=== PATIENT | male | born 1995 | race Two or more races ===

== ENCOUNTER 2018-08-07 08:08 | Emergency (ER) | payer SELFPAY ==
--- NOTE | 2018-08-07 08:40 | EDPHY ---
H & P Stated Complaint: ETOH Time Seen by Provider: 08/07/18 08:32 HPI/ROS: CHIEF COMPLAINT: Alcohol intoxication HISTORY OF PRESENT ILLNESS: 23-year-old male with alcoholism presents with alcohol intoxication. He has been drinking heavily recently because of depression. Picked up by EMS this morning because of unresponsiveness. Denies trauma. Recent insect bite rt forearm, gradually increasing pain and swelling. No fever and no history of IVDA. REVIEW OF SYSTEMS: complete 10 point ROS reviewed and is negative except for the noted elements in the HPI Source: Patient - Personal History Current Tetanus/Diphtheria Vaccine: Yes Current Tetanus Diphtheria and Acellular Pertussis (TDAP): Yes - Medical/Surgical History Hx Asthma: No Hx Chronic Respiratory Disease: No Hx Diabetes: No Hx Cardiac Disease: Yes Hx Renal Disease: No Hx Cirrhosis: No Hx Alcoholism: No Hx HIV/AIDS: No Hx Splenectomy or Spleen Trauma: No Other PMH: htn, anxiety - Social History Smoking Status: Never smoked Alcohol Use: Heavy Drug Use: None - Physical Exam Exam: General Appearance: Lethargic, slurred speech, appears intoxicated Eyes: Pupils equal and round, no conjunctival pallor ENT, Mouth: Mucous membranes moist Neck: Normal inspection Respiratory: Lungs are clear to auscultation Cardiovascular: Regular rate and rhythm Gastrointestinal: Abdomen is soft and nontender Neurological: Lethargic, nonfocal exam Skin: Warm and dry Extremities: Right upper extremity-erythema and tenderness, approximately 6 cm in diameter on the volar aspect of the forearm, no fluctuance or lymphangitis Psychiatric: Flat affect Constitutional: Initial Vital Signs Heart Rate 105 H 08/07/18 08:11 Respiratory Rate 16 08/07/18 08:11 Blood Pressure 134/98 H 08/07/18 08:11 O2 Sat (%) 95 08/07/18 08:11 O2 Delivery Mode Room Air Allergies/Adverse Reactions: No Known Allergies Allergy (Unverified 08/07/18 08:19) Home Medications: Medication Instructions Recorded Cephalexin [Keflex (*)] 500 mg PO QID #20 cap 08/07/18 Cephalexin [Keflex (*)] 500 mg PO TID #20 cap 08/07/18 Gabapentin 08/07/18 Medical Decision Making ED Course/Re-evaluation: Patient presents with alcohol intoxication. Will observe until he is able to ambulate with a steady gait. He is on an [facility] hold and is in agreement to go to the [facility]. He also has right forearm cellulitis. No evidence of abscess. Keflex given. 10:30 a.m.-able to walk with a steady gait. Will d/c to [facility]. - Data Points Medications Given: Discontinued Medications Cephalexin HCl (Keflex) 500 mg PO EDNOW ONE PRN Reason: Protocol Stop: 08/07/18 08:42 Last Admin: 08/07/18 08:45 Dose: 500 mg Departure - Departure Disposition: Home, Routine, Self-Care Clinical Impression: Alcoholic intoxication Qualifiers: Complication of substance-induced condition: uncomplicated Qualified Code(s): F10.920 - Alcohol use, unspecified with intoxication, uncomplicated Cellulitis Qualifiers: Site of cellulitis: extremity Site of cellulitis of extremity: upper extremity Laterality: right Qualified Code(s): L03.113 - Cellulitis of right upper limb Condition: Good Instructions: Cellulitis (ED), Alcohol Intoxication (ED) Referrals: [facility],. [Clinic] - As per Instructions [facility] 24 Hours [Outside] - As per Instructions Prescriptions: Cephalexin [Keflex (*)] 500 mg PO TID #20 cap
[2018-08-07] MEDS ORDERED: CEPHALEXIN 500 MG CAP PO ONE (08:41)
[2018-08-07 11:08] VITALS: BP 129/81
== END 2018-08-07 11:07 | disposition home or self-care (01) ==
DX: F10.920 Alcohol use, unspecified with intoxication, uncomplicated (principal); L03.113 Cellulitis of right upper limb

== ENCOUNTER 2018-08-07 18:31 | Emergency (ER) | payer SELFPAY ==
[2018-08-07] MEDS ORDERED: CEPHALEXIN 500 MG CAP PO ONE (18:46)
--- NOTE | 2018-08-07 18:50 | EDPHY ---
General Time Seen by Provider: 08/07/18 18:31 Narrative: CLINICAL IMPRESSION: Alcohol intoxication, left forearm cellulitis ASSESSMENT/PLAN: 23-year-old male presents to the emergency department for the 2nd time in 12 hr from the [facility] with complaints of right forearm swelling pain and subjective paresthesias. Patient is intoxicated, was discharged from this emergency department at 11:00 a.m. This morning after he was heavily intoxicated and placed on an [facility] hold. He was started on Keflex in the ED, discharged with a prescription for Keflex and Librium prepack. According to the [facility] they have no prescriptions on file for either of these medications. Patient is still intoxicated. He has intact distal neurovascular exam, erythema and swelling to the forearm with no clinical signs of compartment syndrome, necrotizing fasciitis, osteomyelitis, deep space abscess. He has a secondary small cellulitic area to the right superior lateral chest wall. He was given a 2nd dose of Keflex tonight and discharge back to the [facility] with a new prescription for Keflex and a new Librium prepack. Instructed to follow up with primary care in 24-48 hours. Warning signs return to ED sooner outlined and discharge. DIFFERENTIAL DX: Differential diagnosis for this patient includes but not limited to alcohol intoxication, alcohol abuse, alcohol withdrawal, other substance abuse or withdrawal, toxidrome or medication overdose, left arm cellulitis. ED PROCEDURES: See lab and/or imaging results below ED COURSE: Seen by myself at 6:45 p.m.. Flat affect, labile, laying on the bed, responding to all questions, does not remember that he was seen in this emergency department earlier today, intoxicated. Moving his right arm without obvious difficulty. Test Automation Architect strength intact. Swelling and erythema noted to forearm consistent with cellulitis. Will give 2nd dose of Keflex. Plan to call the [facility] to locate his prescription for Keflex and ensure he has a Librium prepack. Plan to discharge back to the [facility]. CHIEF COMPLAINT: Right arm pain and numbness HPI: 23-year-old male presents to the emergency department for the 2nd time in 12 hr with complaints of right arm pain and numbness. Patient was seen in this emergency department at 8:00 a.m. This morning after he was heavily intoxicated and found to have a cellulitis to the right arm. He was given Keflex as well as a prescription for Keflex. He was allowed to sober and was placed on [facility] by police. Shortly after 11, patient sobered enough to have a stable gait and was discharged to the [facility]. He reports he was not given any medications there. He told them that he was having right arm pain and numbness and was transported back to the emergency department tonight. Patient tells me that he was seen in this emergency department yesterday. I informed him that he just left us 7 hours ago. He states "you guys did not do anything for me". I reassured him that he was given a dose of an antibiotic as well as a prescription. He has no idea where the prescription it is. He also does not remember if he was given Librium prepack. He states the [facility] did not give him anything. He has been heavily drinking over the last 2 weeks. He states he is depressed but denies suicidal and homicidal ideations. He states he was bitten by something on his arm. He has no reports of IV drug abuse or other illicit drugs. PAST MEDICAL HISTORY: alcohol abuse See triage summary and nurse notes for addition applicable history Pertinent Past Surgical History: None reported Family History: None reported Social History: Homeless, abuses alcohol REVIEW OF SYSTEMS: A full 10 point review of systems was negative except for those mentioned in HPI. PHYSICAL EXAM: General Appearance: Alert, oriented, man, flat affect, quiet, lying comfortably on the bed, answering all questions, breath alcohol of 0.26, cooperative, NAD, well hydrated, non-toxic appearing, tachycardic, no hypoxia. Neck: Supple, nontender, no lymphadenopathy, no midline pain, FROM, no meningismus. Respiratory: There are no retractions, lungs are clear to auscultation. 4 cm x 4 cm flat erythematous patch of redness on the right upper lateral chest wall. There is a scratch to the skin with in this area and may be indicative of a mild cellulitis. No reproducible chest wall or rib pain. Patient reports no fall or injury. Cardiac: Tachycardic, regular rhythm, no murmurs or gallops. Gastrointestinal: Abdomen is soft, nontender, bowel sounds normal, no masses/ hernia, no rigidity, guarding or focal peritoneal findings. Skin: Right forearm with swelling noted. Superficial erythema and warmth on the volar aspect of the arm with what appears to be a small puncture wound centrally. No induration, fluctuance. Distal neurovascular exam intact. Test Automation Architect strength 4/5 on the right compared to 5/5 on the left. Full range of motion of the shoulder, elbow and wrist. No evidence of tenosynovitis. Able to give thumbs up, a OK sign and abduct fingers without difficulty. No track galloway seen MEDICAL DECISION MAKING: Patient was seen independently. Secondary supervising physician at time of evaluation was: Dr. Moses. Diagnosis: Right forearm cellulitis, alcohol intoxication. New, requires workup Summary: See Assessment and Plan for summary of ED visit Review / Summarize previous medical records: Reviewed ED notes from today Discussed patient with another provider: No Patient Progress: Stable for discharge back to the [facility]. - History Smoking Status: Never smoked - Objective Vital Signs: Initial Vital Signs Temperature (C) 36.7 C 08/07/18 18:33 Heart Rate 103 H 08/07/18 18:33 Respiratory Rate 16 08/07/18 18:33 Blood Pressure 141/89 H 08/07/18 18:33 O2 Sat (%) 96 08/07/18 18:33 O2 Delivery Mode Room Air Allergies/Adverse Reactions: No Known Allergies Allergy (Unverified 08/07/18 08:19) Home Medications: Medication Instructions Recorded Cephalexin [Keflex (*)] 500 mg PO QID #20 cap 08/07/18 Cephalexin [Keflex (*)] 500 mg PO TID #20 cap 08/07/18 Gabapentin 08/07/18 Medications Given: Discontinued Medications Cephalexin HCl (Keflex) 500 mg PO EDNOW ONE PRN Reason: Protocol Stop: 08/07/18 18:47 Last Admin: 08/07/18 18:57 Dose: 500 mg Chlordiazepoxide (Librium 25 Mg Prepack#6) 1 btl GABRIEL العلي ONE Stop: 08/07/18 19:00 Last Admin: 08/07/18 19:26 Dose: 1 btl Departure - Departure Disposition: Home, Routine, Self-Care Clinical Impression: Alcohol intoxication Qualifiers: Complication of substance-induced condition: uncomplicated Qualified Code(s): F10.920 - Alcohol use, unspecified with intoxication, uncomplicated Cellulitis Qualifiers: Site of cellulitis: extremity Site of cellulitis of extremity: upper extremity Condition: Fair Instructions: Chlordiazepoxide/Clidinium (By mouth), Cellulitis (ED), Abuse of Alcohol (ED) Additional Instructions: DISCHARGE INSTRUCTIONS FROM YOUR DOCTOR Thank you for visiting our emergency department today. You were treated by a physician assistant corporate controller today and your case was reviewed with our ED Attending physician. Please keep in mind that discharge from the emergency department does not mean that there is nothing wrong - it simply means that we have not identified an emergency condition that requires further evaluation or treatment in the hospital. You should always plan to follow up with primary care for re- evaluation of your condition in the next 2-3 days. If you have been referred to a specialist, please call as soon as possible (today or tomorrow) to schedule your follow up appointment at the appropriate time. A 2ND DOSE OF KEFLEX WAS GIVEN IN THE EMERGENCY DEPARTMENT TONIGHT. WE [facility]CT[facility] TO LOCATE YOUR KEFLEX PRESCRIPTION THAT WAS GIVEN EARLIER TODAY. IT IS IMPORTANT THAT YOU TAKE THE FULL COURSE OF THIS ANTIBIOTIC. THE [facility] HAS WALK-IN APPOINTMENTS FOR THE HOMELESS AT THE FOLLOWING DAYS AND LOCATIONS. NO APPOINTMENT IS NEEDED. PLEASE MAKE A FOLLOW-UP APPOINTMENT WITH THEM TO HAVE YOUR WOUND RECHECKED. FRIDAY 8-10AM AT [facility] AND 11AM-1PM AT THE [facility] FRIDAY 8-10AM AT [facility] FRIDAY 8-10AM AT [facility] FRIDAY 2-4PM AT [facility] FRIDAY 8-10AM AT [facility] RETURN TO THE EMERGENCY DEPARTMENT FOR INCREASED ARM SWELLING, PAIN, DEVELOPMENT OF FEVER OR CHILLS, VOMITING, OR ANY OTHER CONCERNS. People present with illnesses and injuries in different ways, and it is always possible that we have missed something. You may always return for re-evaluation if symptoms worsen or if they are not improving or if you develop new/different symptoms. Again, thank you for choosing our emergency department. We hope that you feel better. Referrals: Patient,NotPresent [Unknown] - As per Instructions [facility],. [Clinic] - 1-2 days without fail Prescriptions: Cephalexin [Keflex (*)] 500 mg PO QID #20 cap
[2018-08-07] MEDS ORDERED: CHLORDIAZEPOXIDE 25MG PREPK#6 BTL TAKEHOME ONE (18:59)
[2018-08-07 19:42] VITALS: BP 125/77
== END 2018-08-07 19:42 | disposition home or self-care (01) ==
LOC: EDUNIT#
DX: F10.920 Alcohol use, unspecified with intoxication, uncomplicated (principal); L03.114 Cellulitis of left upper limb

== ENCOUNTER 2018-08-23 12:14 | Emergency (ER) | payer MEDICAID ==
--- NOTE | 2018-08-23 12:33 | EDPHY ---
H & P - Medical/Surgical History Hx Asthma: No Hx Chronic Respiratory Disease: No Hx Diabetes: No Hx Cardiac Disease: Yes Hx Renal Disease: No Hx Cirrhosis: No Hx Alcoholism: No Hx HIV/AIDS: No Hx Splenectomy or Spleen Trauma: No Other PMH: htn, anxiety - Social History Smoking Status: Never smoked Time Seen by Provider: 08/23/18 12:17 HPI/ROS: CHIEF COMPLAINT: Suspected alcohol abuse HISTORY OF PRESENT ILLNESS: 23 year old homeless male arrives via ambulance for suspected alcohol abuse. Patient unable to ambulate without assistance. No reports of trauma or assault. No fall from height. No structures of height near patient. History is limited due to patient's altered mental status. REVIEW OF SYSTEMS: 10 systems reviewed and negative with the exception of the elements mentioned in the history of present illness PAST MEDICAL/SURGICAL HISTORY: no anticoagulant use, no relevant medical/ surgical history SOCIAL HISTORY: Positive for witnessed and self disclosed alcohol use PHYSICAL EXAM 1) GENERAL: poorly kept, dirty, foul-smelling, Answering questions appropriately.Smells of alcohol. 2) HEAD: Normocephalic, atraumatic 3) HEENT: Pupils equal, round, reactive to light bilaterally. Negative Horners. Nasopharynx, oropharynx, clear. No deformity or angulation of nose. No septal hematoma. No rhinorrhea. No oral trauma. Ears bilaterally with normal tympanic membranes. No hemotympanum. No fluid or blood in the external auditory canal. No raccoon eyes. No Carpenter sign. Teeth are normally aligned with no gross malocclusion, TMJ bilaterally nontender, facial bones nontender including the zygomatic arch, maxilla mandible. 4) NECK: No cervical collar is on. Posterior cervical spine is nontender, no stepoff, no effusion. Full range of motion which does not elicit any midline cervical spine pain, no posterior midline tenderness, no step-off. 5) LUNGS: Clear to auscultation bilaterally, no wheezes, no rhonchi, no retractions. No obvious signs of trauma. No chest wall pain. No flaring, no grunting. Moving symmetrically. No crepitus. 6) HEART: [Regular rate and rhythm, 7) ABDOMEN: No guarding, no rebound, no focal tenderness, no peritoneal signs, no signs of trauma, no ecchymosis 8) MUSCULOSKELETAL: Left upper extremity: No evidence of cellulitis. Soft compartments. No discoloration. Moving all extremities, no focal areas of tenderness, no obvious trauma. 9) BACK: No midline vertebral tenderness, no fluctuance, no step-off, no obvious trauma, no visual or palpable abnormality. 10) SKIN: No laceration. No abrasion DIFFERENTIAL DIAGNOSIS: In no particular orderincluding but not limited to hypoglycemia, infectious process, electrolyte abnormality, head injury and intoxicants. (Tori Flores) Constitutional: Initial Vital Signs Temperature (C) 36.6 C 08/23/18 12:36 Heart Rate 98 08/23/18 12:36 Respiratory Rate 16 08/23/18 12:36 Blood Pressure 132/70 H 08/23/18 12:36 O2 Sat (%) 93 08/23/18 12:36 O2 Delivery Mode Nasal Cannula O2 (L/minute) 2 Allergies/Adverse Reactions: No Known Allergies Allergy (Verified 08/23/18 12:43) Home Medications: Medication Instructions Recorded Cephalexin [Keflex (*)] 500 mg PO QID #20 cap 08/07/18 Cephalexin [Keflex (*)] 500 mg PO TID #20 cap 08/07/18 Gabapentin 08/07/18 Medical Decision Making ED Course/Re-evaluation: 12:30 p.m.: Patient has history of emergency department visit for alcohol abuse in the past. He is currently somnolent and unable provide me reliable history. Will obtain laboratory studies. Specifically, he was evaluated in the ER approximately 2 weeks ago for left upper extremity cellulitis 1:44 p.m.: Patient's alcohol level returned at this time is 444 5:00 p.m.: Care turned over to Dr. Luis Felipe Moses. The patient has been re- evaluated with serial exams by myself in the emergency department and he remains sleeping. (Tori Flores) Other Provider: PHYSICIAN DOCUMENTATION: The patient was evaluated and managed by the Physician Sparmaker and myself. I have reviewed the chart and agree with the findings and plan of care as documented. In addition, I examined the patient myself. History confirmed as limited by patient's altered mental status but per EMS no trauma. Physical findings as follows: Sleepy awakens to voice. Alcohol level elevated greater than 400, glucose 104. Plan for serial examinations. Signed out to Josué at 1500. I am the secondary supervising physician. (Chago Calderon) - Data Points Laboratory Results: 08/23/18 08/23/18 14:08 12:45 POC Glucose 104 mg/dL H mg/dL (70-100) Ethyl Alcohol 444 mg/dL H* mg/dL (0-10) Medications Given: Discontinued Medications Sodium Chloride (Ns) 1,000 mls @ 0 mls/hr IV ONCE ONE PRN Reason: Wide Open Stop: 08/23/18 13:08 Last Admin: 08/23/18 13:11 Dose: 1,000 mls Point of Care Test Results: Chemistry 08/23/18 14:08 POC Glucose 104 mg/dL H mg/dL (70-100) Departure - Departure Disposition: Home, Routine, Self-Care Clinical Impression: Alcoholic intoxication Qualifiers: Complication of substance-induced condition: uncomplicated Qualified Code(s): F10.920 - Alcohol use, unspecified with intoxication, uncomplicated Condition: Good Instructions: Alcohol Intoxication (ED), Chlordiazepoxide (By mouth) Referrals: Ramya Shankar MD [Medical Doctor] - As per Instructions [facility],. [Clinic] - As per Instructions [facility] 24 Hours [Outside] - As per Instructions
[2018-08-23] MEDS ORDERED: NS 1,000 ML IV ONE (13:07)
[2018-08-23] MEDS ORDERED: CHLORDIAZEPOXIDE 25MG PREPK#6 BTL TAKEHOME ONE (16:18)
[2018-08-23] MEDS ORDERED: AMMONIA AROMATIC 1 EACH AMP IH ONE (16:33)
[2018-08-23 17:10] VITALS: BP 120/82
== END 2018-08-23 17:10 | disposition home or self-care (01) ==
LOC: EDUNIT#
DX: F10.920 Alcohol use, unspecified with intoxication, uncomplicated (principal)
CPT/HCPCS: G0480

== ENCOUNTER 2018-09-07 20:15 | Emergency (ER) | payer MEDICAID ==
--- NOTE | 2018-09-07 20:13 | EDPHY ---
H & P Time Seen by Provider: 09/07/18 20:17 Constitutional: Initial Vital Signs Temperature (C) 36.3 C 09/07/18 20:19 Heart Rate 130 H 09/07/18 20:19 Respiratory Rate 31 H 09/07/18 20:19 Blood Pressure 140/67 H 09/07/18 20:19 O2 Sat (%) 100 09/07/18 20:19 O2 Delivery Mode Room Air O2 (L/minute) 2 Allergies/Adverse Reactions: No Known Allergies Allergy (Verified 08/23/18 12:43) Home Medications: Medication Instructions Recorded Cephalexin [Keflex (*)] 500 mg PO QID #20 cap 08/07/18 Cephalexin [Keflex (*)] 500 mg PO TID #20 cap 08/07/18 Gabapentin 08/07/18 Medical Decision Making ED Course/Re-evaluation: CHIEF COMPLAINT: Possible overdose HISTORY OF PRESENT ILLNESS: The patient is a 23 y/o male with a history of alcoholism and polysubstance abuse arriving via EMS for a possible overdose today. Per the patient's roommates, the patient was drinking alcohol and taking several pills today. The patient was then found unconscious outside of the [facility]. He was given Narcan IN. Patient is still not full awake, but is breathing on his own and tremulous. REVIEW OF SYSTEMS: Unable to obtain secondary to patient's mental status. PHYSICAL EXAM: HR, BP, O2 Sat, RR. Temp noted General Appearance: Alert, well hydrated, appropriate, and non-toxic appearing. Head: Atraumatic without scalp tenderness or obvious injury Eyes: Pupils equal, round, reactive to light and accommodation, EOMI, no trauma , no injection. Ears: Clear bilaterally, no perforation, normal landmarks Nose: Atraumatic, no rhinorrhea, clear. Throat: There is no erythema or exudates, no lesions, normal tonsils, mucus membranes moist. Neck: Supple, 2+ carotid upstroke, nontender, no lymphadenopathy. Respiratory: No retractions, no distress, no wheezes, and no accessory muscle use. Lungs are clear to auscultation bilaterally. Cardiovascular: Regular rate and rhythm, no murmurs, rubs, or gallops. Bilateral carotid, radial, dorsalis pedis, and posterior tibial pulses intact. Good capillary refill all extremities. Gastrointestinal: Abdomen is soft, nontender, non-distended, no masses, no rebound, no guarding, no peritoneal signs. Musculoskeletal: Normal active ROM of all extremities, atraumatic. Neurological: Alert, appropriate, and interactive. The patient has normal DTRs and non-focal cranial nerves, motor, sensory, and cerebellar exam. Skin: No rashes, good turgor, no nodules on palpation. Past medical history: Alcoholism Past surgical history: Denies Family history: Denies Social history: Single, not employed, lives in [place] DIAGNOSTICS/PROCEDURES/CRITICAL CARE TIME: Not indicated. DIFFERENTIAL DIAGNOSIS: The differential diagnosis for the patient's altered mental status included but was not limited to hypoglycemia, infectious process, electrolyte abnormality, head injury, neurologic process, anemia, cardiac process, and intoxicants. MEDICAL DECISION MAKING: The patient is a 23 y/o male with a history of alcoholism and polysubstance abuse arriving via EMS for a possible overdose today. Per the patient's roommates, the patient was drinking alcohol and taking several pills today. The patient was then found unconscious outside of the [facility]. He was given Narcan IN. On exam the patient is tremulous and breathing on his own. There are no track g[place] visualized. 2019: 6mg IV Narcan administered. HR: 122 and O2Sats: 100% 2024: Patient is waking up and talking. He is able to use the bedside urinal without difficulty. His POC Creatinine is 1.9 Patient is awake. Alert. Clinically sober. Able ambulate. Being belligerent. And being discharged (Vahe Harper) - Data Points Laboratory Results: Laboratory Results 09/07/18 20:20 09/07/18 20:20 09/07/18 09/07/18 09/07/18 20:26 20:25 20:20 WBC RBC Hgb POC Hgb 17.7 gm/dL H gm/dL (13.7-17.5) Hct POC Hct 52 % H % (40-51) MCV MCH MCHC RDW Plt Count MPV Neut % (Auto) Lymph % (Auto) [place] % (Auto) Eos % (Auto) Baso % (Auto) Nucleat RBC Rel Count Absolute Neuts (auto) Absolute Lymphs (auto) Absolute Monos (auto) Absolute Eos (auto) Absolute Basos (auto) Absolute Nucleated RBC Immature Gran % Seg Neutrophils % Band Neutrophils % Lymphocytes % Monocytes % Eosinophils % Basophils % Metamyelocytes % Myelocytes % Promyelocytes % Blast Cells % Immature Gran # Absolute Seg Neuts Absolute Band Neuts Absolute Lymphocytes Absolute Monocytes Absolute Eosinophils Absolute Basophils Absolute Metamyelocyte Absolute Myelocytes Absolute Promyelocytes Absolute Plasma Cells Nucleated RBCs RBC/WBC/PLT Morphology Absolute Blast Cells Plasma Cells % Platelet Estimate POC Sodium 143 mEq/L mEq/L (135-145) Sodium 141 mEq/L mEq/L (135-145) POC Potassium 3.8 mEq/L mEq/L (3.3-5.0) Potassium 4.2 mEq/L mEq/L (3.5-5.2) POC Chloride 101 mEq/L mEq/L (97-110) Chloride 99 mEq/L mEq/L (97-110) Carbon Dioxide 17 mEq/l L mEq/l (22-31) POC Total CO2 23 mEq/L mEq/L (22-31) Anion Gap 25 mEq/L H mEq/L (6-14) POC BUN 9 mg/dL mg/dL (7-23) BUN 11 mg/dL mg/dL (7-23) Creatinine 1.7 mg/dL H mg/dL (0.7-1.3) POC Creatinine 1.9 mg/dL H mg/dL (0.7-1.3) Estimated GFR 50 Glucose 259 mg/dL H mg/dL (70-100) POC Glucose 255 mg/dL H mg/dL (70-100) Calcium 9.2 mg/dL mg/dL (8.5-10.4) Salicylates < 1.0 mg/dL L mg/dL (2.0-20.0) Urine Opiates Screen NEGATIVE (NEGATIVE) Acetaminophen < 10 mcg/mL L mcg/mL (10-30) Urine Barbiturates NEGATIVE (NEGATIVE) Ur Phencyclidine Scrn NEGATIVE (NEGATIVE) Ur Amphetamine Screen NEGATIVE (NEGATIVE) U Benzodiazepines Scrn NEGATIVE (NEGATIVE) Urine Cocaine Screen NEGATIVE (NEGATIVE) U Marijuana (THC) Screen NON-NEGATIVE H (NEGATIVE) Ethyl Alcohol 120 mg/dL H mg/dL (0-10) 09/07/18 20:20 WBC 15.42 10^3/uL H 10^3/uL (3.80-9.50) RBC 5.60 10^6/uL 10^6/uL (4.40-6.38) Hgb 15.9 g/dL g/dL (13.7-17.5) POC Hgb Hct 51.5 % H % (40.0-51.0) POC Hct MCV 92.0 fL fL (81.5-99.8) MCH 28.4 pg pg (27.9-34.1) MCHC 30.9 g/dL L g/dL (32.4-36.7) RDW 14.2 % % (11.5-15.2) Plt Count 207 10^3/uL 10^3/uL (150-400) MPV 9.8 fL fL (8.7-11.7) Neut % (Auto) Not Reported Lymph % (Auto) Not Reported [place] % (Auto) Not Reported Eos % (Auto) Not Reported Baso % (Auto) Not Reported Nucleat RBC Rel Count Not Reported Absolute Neuts (auto) Not Reported Absolute Lymphs (auto) Not Reported Absolute Monos (auto) Not Reported Absolute Eos (auto) Not Reported Absolute Basos (auto) Not Reported Absolute Nucleated RBC Not Reported Immature Gran % Not Reported Seg Neutrophils % 59.2 % % Band Neutrophils % 3.0 % % Lymphocytes % 33.7 % % Monocytes % 4.1 % % Eosinophils % 0.0 % % Basophils % 0.0 % % Metamyelocytes % 0.0 % % Myelocytes % 0.0 % % Promyelocytes % 0.0 % % Blast Cells % 0.0 % % Immature Gran # Not Reported Absolute Seg Neuts 9.13 10^3/uL H 10^3/uL (1.70-6.50) Absolute Band Neuts 0.46 10^3/uL 10^3/uL (0.00-0.70) Absolute Lymphocytes 5.20 10^3/uL H 10^3/uL (1.00-3.00) Absolute Monocytes 0.63 10^3/uL 10^3/uL (0.30-0.80) Absolute Eosinophils 0.00 10^3/uL L 10^3/uL (0.03-0.40) Absolute Basophils 0.00 10^3/uL L 10^3/uL (0.02-0.10) Absolute Metamyelocyte 0.00 10^3/mL 10^3/mL (0.00-0.00) Absolute Myelocytes 0.00 10^3/mL 10^3/mL (0.00-0.00) Absolute Promyelocytes 0.00 10^3/uL 10^3/uL (0.00-0.00) Absolute Plasma Cells 0.00 10^3/uL 10^3/uL (0.00-0.00) Nucleated RBCs 0 /100 WBC /100 WBC (0-0) RBC/WBC/PLT Morphology NORMAL (NORMAL) Absolute Blast Cells 0.00 10^3/uL 10^3/uL (0.00-0.00) Plasma Cells % 0.0 % % Platelet Estimate ADEQUATE (ADEQ) POC Sodium Sodium POC Potassium Potassium POC Chloride Chloride Carbon Dioxide POC Total CO2 Anion Gap POC BUN BUN Creatinine POC Creatinine Estimated GFR Glucose POC Glucose Calcium Salicylates Urine Opiates Screen Acetaminophen Urine Barbiturates Ur Phencyclidine Scrn Ur Amphetamine Screen U Benzodiazepines Scrn Urine Cocaine Screen U Marijuana (THC) Screen Ethyl Alcohol Medications Given: Discontinued Medications Sodium Chloride (Ns) 1,000 mls @ 0 mls/hr IV ONCE ONE PRN Reason: Wide Open Stop: 09/07/18 20:41 Last Admin: 09/07/18 20:30 Dose: 1,000 mls Sodium Chloride (Ns) 1,000 mls @ 0 mls/hr IV ONCE ONE PRN Reason: Wide Open Stop: 09/07/18 20:41 Last Admin: 09/07/18 20:40 Dose: 1,000 mls Naloxone HCl (Narcan) 6 mg IVP EDNOW ONE Stop: 09/07/18 20:31 Last Admin: 09/07/18 20:41 Dose: 6 mg Ondansetron HCl (Zofran) 4 mg IVP EDNOW ONE Stop: 09/07/18 20:51 Last Admin: 09/07/18 20:52 Dose: 4 mg Point of Care Test Results: Chemistry 09/07/18 20:26 POC Sodium 143 mEq/L mEq/L (135-145) POC Potassium 3.8 mEq/L mEq/L (3.3-5.0) POC Chloride 101 mEq/L mEq/L (97-110) POC Total CO2 23 mEq/L mEq/L (22-31) POC BUN 9 mg/dL mg/dL (7-23) POC Creatinine 1.9 mg/dL H mg/dL (0.7-1.3) POC Glucose 255 mg/dL H mg/dL (70-100) ISTAT H&H 09/07/18 20:26 POC Hgb 17.7 gm/dL H gm/dL (13.7-17.5) POC Hct 52 % H % (40-51) Departure - Departure Disposition: Home, Routine, Self-Care Clinical Impression: Alcohol intoxication Qualifiers: Complication of substance-induced condition: uncomplicated Qualified Code(s): F10.920 - Alcohol use, unspecified with intoxication, uncomplicated Alcohol dependence Qualifiers: Substance use status: with intoxication Complication of substance-induced condition: uncomplicated Qualified Code(s): F10.220 - Alcohol dependence with intoxication, uncomplicated Condition: Fair Instructions: Alcohol Intoxication (ED) Referrals: NONE *PRIMARY CARE P,. [Primary Care Provider] - As per Instructions Report Scribed for: Vahe Harper Report Scribed by: Cortney Monge Date of Report: 09/07/18 Time of Report: 20:17
[2018-09-07] MEDS ORDERED: NALOXONE HCL 2 MG/2 ML SYR IVP ONE (20:21)
[2018-09-07 20:29] LABS: PLATELET COUNT 207 10^3/uL (150-400)
[2018-09-07] MEDS: NS 1,000 ML IV ONE ×2 (20:30→20:40)
[2018-09-07] MEDS: NALOXONE HCL 0.4 MG/ML INJ IVP ONE (20:41)
[2018-09-07] MEDS: ONDANSETRON 4 MG/2 ML VIAL IVP ONE (20:52)
[2018-09-08 00:46] VITALS: BP 105/46
== END 2018-09-08 01:15 | disposition home or self-care (01) ==
LOC: EDUNIT#
DX: F10.220 Alcohol dependence with intoxication, uncomplicated (principal); E86.9 Volume depletion, unspecified
CPT/HCPCS: 80305; 82435-PO; 82565-PO; 82947-PO; 84132-PO; 84295-PO; 84520-PO; 85014-ER; 96374; G0480; J2310; J2405